=== PATIENT | female | born 1955 | race Hispanic/Latino ===

== ENCOUNTER 2020-08-14 07:14 | Day surgery (SDC) | payer OTHER ==
[2020-08-09 12:45] LABS: BASOPHILS % (AUTO) 0.7 % (0.0-5.0); HEMATOCRIT 46.5 % (36-48); MEAN CORPUSCULAR HEMOGLOBIN 27.3 pg (27.0-33.0); MEAN CORPUSCULAR HGB CONC 31.8 g/dL (32.0-36.0); MEAN CORPUSCULAR VOLUME 85.6 fL (79-99); MONOCYTES % (AUTO) 5.4 % (3.0-13.0); NEUTROPHILS % (AUTO) 62.7 % (40.0-77.0); PLATELET COUNT (AUTO) 264 K/uL (130-400); RED BLOOD CELL COUNT(AUTO) 5.43 MIL/uL (4.00-5.50); RED CELL DISTRIBUTION WIDTH 13.4 % (11.0-15.5); WHITE BLOOD COUNT (AUTO) 8.7 K/uL (4.8-10.8)
[2020-08-09 13:06] LABS: CREATININE 1.1 mg/dL (0.5-1.5); POTASSIUM 4.1 mmol/L (3.5-5.1)
[2020-08-14] VITALS (15 sets, daily range): BP systolic 107–137; BP diastolic 64–88
[~2020-08-14] VITALS: Ht 152.4 cm; Wt 92.1 kg
[~2020-08-14 07:14] MED LIST: ASPI-1443 PO; ATOR40TA71 PO; CALC1TAB2 PO; CEFAZOLIN SODIUM 1 GM VIAL IVP SCH; EMPA1TAB7 PO; LISI2.5T2 PO; OMEP40CA13 PO; SEMA1PEN3 SQ; SODIUM CHLORIDE 0.9% 1000ML 1,000 ML IV SCH; vitamin d3 PO
[2020-08-14] MEDS: CEFAZOLIN SODIUM 1 GM VIAL ONE ×2 (08:49→10:00)
[2020-08-14] MEDS ORDERED: LIDOCAINE HCL 1% 20 ML VIAL ONE (08:55)
[2020-08-14] MEDS ORDERED: BUPIVACAINE/PF 0.5% 30ML VIAL ONE (08:55)
[2020-08-14] MEDS ORDERED: MIDAZOLAM HCL 1 MG/ML 2ML VIAL ONE (09:52)
[2020-08-14] MEDS ORDERED: FENTANYL CITRATE PF 50 MCG/1 ML 2ML VIAL ONE (09:53)
[2020-08-14] MEDS ORDERED: PROPOFOL 10 MG/ML 20ML VIAL IV ONE (10:01)
== END 2020-08-14 12:00 | disposition home or self-care (01) ==
LOC: DAH 07:14
PROVIDERS: ATTEND Surgery
DX: D17.1 Benign lipomatous neoplasm of skin and subcutaneous tissue of trunk (principal); I10 Essential (primary) hypertension; K21.9 Gastro-esophageal reflux disease without esophagitis; E11.9 Type 2 diabetes mellitus without complications; E78.00 Pure hypercholesterolemia, unspecified; Z79.899 Other long term (current) drug therapy; Z20.828 Contact with and (suspected) exposure to other viral communicable diseases
CPT/HCPCS: 21933; 36415; 80048; 82948 ×2; 85025; A4215; A4221; A4222; A4223; A4452; A4600; A4663; A4930 ×2; C9803; J0690; J2250; J2704; J3010; J3490; J7030 ×2; U0003